=== PATIENT | female | born 1980 | race Caucasian/White ===

== ENCOUNTER 2017-03-10 08:26 | Outpatient (CLI) | payer OTHER ==
[2016-02-25 07:46] VITALS: BMI 27.1
[2017-03-10 08:55] LABS: FLU INTERNAL QC INTERNAL QC VALID; RAPID FLU A NEGATIVE (NEGATIVE); RAPID FLU B NEGATIVE (NEGATIVE)
== END 2017-03-10 08:27 | disposition home or self-care (01) ==
LOC: LAB 08:26
PROVIDERS: ATTEND Nurse Practitioner Family
DX: J02.9 Acute pharyngitis, unspecified (principal); R50.9 Fever, unspecified; R05 Cough
CPT/HCPCS: 87651; 87804; 87880

== ENCOUNTER 2017-05-16 09:45 | Outpatient (CLI) ==
[2016-02-25 07:46] VITALS: BMI 27.1
--- NOTE | 2017-05-16 10:36 | DI ---
EXAM: Three views of the lumbar spine HISTORY: Lower back pain. COMPARISON: None FINDINGS: There is no compression fracture or subluxation of the lumbosacral spine. The lumbosacral junction is intact. The facets and posterior processes are unremarkable. The soft tissues are unr emarkable. There is no lytic or blastic lesion. IMPRESSION: No acute abnormality of the lumbar spine.
== END 2017-05-16 09:46 | disposition home or self-care (01) ==
LOC: RAD 09:45
PROVIDERS: ATTEND Nurse Practitioner Family
DX: M54.5 Low back pain (principal); S39.012A Strain of muscle, fascia and tendon of lower back, initial encounter

== ENCOUNTER 2017-07-23 09:00 | Outpatient (RCR) ==
[2016-02-25 07:46] VITALS: BMI 27.1
--- NOTE | 2017-07-03 08:35 | RS.OPPTEV2 ---
Date of Note: 07/02/17 Visit #: 1 Date of Evaluation: 07/02/17 Payer Source: Workman's Comp Treatment Diagnosis: Low back pain, strain of muscle of low back History of Condition/Mechanism of Injury:: Patient reports low back pain as a result of lifting a 5 lb bucket of ice on 05/05/17 at work. States she felt a pull in her low back, but did not initially feel pain. States she went ahead and worked and tried to manage her pain with heat and cold, but she soon realized she would have to see a physician about her pain. Prior Level of Function.....Patient was independent with: ADL's, Self Care, Work /Vocation, Caregiving, Ambulation/Mobility, Community Integration/Access Functional Limitations: Reaching, Pushing, Pulling, Lifting, Sitting (prolonged) , Standing (prolonged), Bending, Community Access/Integration Current Subjective/complaints:: Patient reports pain started on the left side of the low back. She did have aching into the left LE to the knee. Since taking a muscle relaxant and an anti-inflammatory, she reports pain is much less. States she currently feels pressure in the lower back and light aching in the left thigh. She reports increased pain and the feeling of muscle guarding in her back if she picks up her grandaughter. Also reports needing to move around if she stands or sits for too long. She is currently on light duty at work until she goes back for a follow up on 07/14/17. 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 Medical History Smoking Status: Current every day smoker Hx Home Medications: diclofenac Patient's Goals: Her goal is to get relief of back pain and return to work. Pain Assessment - Pain Description Pain Location: low back and left thigh Pain Description: Tightness, Aching Current Pain Intensity: 3/10 Worst Pain Intensity: 7/10 Functional Outcome Measure Oswestry LBP: 36 - G Codes & Severity Modifier G Codes & Modifier: NA Source of G Code score: NA Observation - Observation Comments: Lumbar spine demonstrates slight rotation to the right in standing. This is not as obvious in sitting. Gait - Gait Pattern General Gait Pattern Observation: No Deviations/Normal - ROM Lumbar Flexion: Hand reach to Mid-Thighs Sidebending to Left: Reach to Mid-thigh Sidebending to Right: Reach to Mid-thigh Comments: Lumbar extension beyond neutral causes increased pain in the low back. Side bending to the right causes pulling/tightness on the left low back region. - Strength Comments: Bilateral LE strength 5/5 throughout. - Special Tests BETHANY Test: Negative Left, Negative Right SLR Test: Negative Left, Negative Right Seated Dural Stretch Test: Negative Left, Negative Right SI Joint Compression: Negative Palpation Comments:: Tenderness in the left lumbosacral area reported. She demonstrates moderate increased muscle tone along bilateral lumbar paraspinals. Reports no pain or tenderness with palpation directly over the lumbar spine with central PA 's. Sensation - Sensation Right Lower Extremity: Intact/Normal Left Lower Extremity: Intact/Normal Interventions - Exercise/Activities/Manual Therapy Exercises/Activities: Patient instructed in stretching for HEP: HS stretch, piriformis stretch, and lower trunk rotation. Manual Therapy: NA HOME EXERCISE PROGRAM: HS, Piriformis, lower trunk rotation stretch - Charges Total Direct Minutes: 45 mins Total Treatment Time: 45 mins Procedures billed for this date of service:: EVAL LOW Assessment Assessment: Patient presents to therapy with a diagnosis of strain of muscle of the lower back. She presents with subjective reports of symptoms that have improved, but she continues to experience muscle guarding and discomfort with bending, lifting, or being in one position for a long amount of time. She demonstrates moderate increased muscle tone along the lumbar spine and decreased lumbar AROM. She will benefit from modalities to decrease muscle tone and her discomfort with ROM. She will also benefit from education of back safety and proper lifting mechanics. Patient Education: Education of diagnosis, Body/Joint mechanics, Home Exercise Program, Activity Modification, Education of Plan of Care Rehab Potential: Good Short Term Goals Goal #1: Pt independent in initial stretching exercises for HEP. Goal to be met by: 07/09/17 Goal #2: Muscle tone at lumbar paraspinals decreased to minimal. Goal to be met by: 07/16/17 Goal #3: Lumbar AROM WFL's. Goal to be met by: 07/16/17 Hourly Caregiver Goals Goal #1: Pt knows HEP and to continue ex's to maintain functional level at D/C. Goal to be met by: 08/06/17 Goal #2: Score on Oswestry LBP scale improved to 10. Goal to be met by: 08/06/17 Goal #3: Pt able to perform all ADL's with no low back pain. Goal to be met by: 08/06/17 Goal #4: Pt able to return to work without limitation. Goal to be met by: 08/06/17 Plan - Treatment to be Provided Procedures: Therapeutic Exercises, Therapeutic Activity, Manual Therapy, Patient Education Modalities: Electrical Stimulation, Ultrasound/Phonophoresis, Cryotherapy, Hot Packs - Treatment Plan Frequency: 3 X week Duration: 3-4 weeks ORDER # VISITS AND/OR THROUGH DATE: 08/06/17 - Treatment Code (1) Low back pain Qualifiers: Chronicity: acute Back pain laterality: unspecified Sciatica presence: unspecified whether sciatica present Qualified Description: Acute low back pain, unspecified back pain laterality, with sciatica presence unspecified Qualifier Code(s): (M54.5) Low back pain (2) Strain of muscle, fascia and tendon of lower back, subsequent encounter Comments: S39.012D
--- NOTE | 2017-07-14 13:44 | RS.OPPTDN ---
Subjective Date of Note: 07/14/17 Visit #: 2 Date of Evaluation: 07/02/17 Payer Source: Workman's Comp Treatment Diagnosis: Low back pain, strain of muscle of low back Current Subjective/complaints:: Patient reporting tightness across the low back , particularly the L side. She says when pain is bad, it runs down her L leg. She describes her symptoms as "aggravating," not actual sharp pain. She says she works 2, 10 hour days and she stands constantly. Lucia says this is what increases her pain. Pain Assessment - Pain Description Pain Location: low back and left thigh Pain Description: Tightness, Aching Current Pain Intensity: "aggravating" - Treatment Modality: Ultrasound Parameters/Method Applied: continuous @ 1.5 w/cm2 x 10 L Lumbar paraspinals x 6 mins, 4 to the R Patient Position: Right Sidelying - Heat/Cryotherapy Treatment: Hot Pack (mid to low back in supine x20 mins) Interventions - Exercise/Activities/Manual Therapy Exercises/Activities: Patient received passive stretching of: SKTC, HS, Piriformis bilaterally, but with focus to the L. Patient began pillow squeezes and isometric hip abd x 10. Reviewed HEP. Total minutes of Exercise: 15 Manual Therapy: NA HOME EXERCISE PROGRAM: HS, Piriformis, lower trunk rotation stretch - Charges Total Direct Minutes: 25 Total Treatment Time: 45 Procedures billed for this date of service:: hp, u/s, ex Assessment: Patient appeared to balta modalities and therex well. She demo mod muscle guarding along the lower lumbar paraspinals. Mod tightness during L HS stretch. Patient Education: Education of diagnosis, Body/Joint mechanics, Home Exercise Program, Home Safety, Activity Modification, Education of Plan of Care Patient demonstrates compliance with HEP?: Yes Short Term Goals Goal #1: Pt independent in initial stretching exercises for HEP. Goal to be met by: 07/09/17 Progress towards Goal:: Progressing Goal #2: Muscle tone at lumbar paraspinals decreased to minimal. Goal to be met by: 07/16/17 Goal #3: Lumbar AROM WFL's. Goal to be met by: 07/16/17 Safety Belt Installer Goals Goal #1: Pt knows HEP and to continue ex's to maintain functional level at D/C. Goal to be met by: 08/06/17 Goal #2: Score on Oswestry LBP scale improved to 10. Goal to be met by: 08/06/17 Goal #3: Pt able to perform all ADL's with no low back pain. Goal to be met by: 08/06/17 Goal #4: Pt able to return to work without limitation. Goal to be met by: 08/06/17 Plan PLAN OF CARE EXPIRES ON:: 08/06/17 ORDER # VISITS AND/OR THROUGH DATE: 08/06/17 PLAN: Continue Plan of Care
--- NOTE | 2017-07-16 10:30 | RS.OPPTDN ---
Subjective Date of Note: 07/16/17 Visit #: 3 Date of Evaluation: 07/02/17 Payer Source: Workman's Comp Treatment Diagnosis: Low back pain, strain of muscle of low back Current Subjective/complaints:: Patient reports feeling much better the day of last treatment, but having soreness and stiffness the next moning. Reports she is working on HEP. Pain Assessment - Pain Description Pain Location: low back and left thigh Pain Description: Tightness, Aching Current Pain Intensity: "aggravating" - Treatment Modality: Ultrasound Parameters/Method Applied: [id number] at 1.5w/cm2 to the left lumbar paraspinals and into the glut region prior to EX. Patient Position: Right Sidelying - Heat/Cryotherapy Treatment: Hot Pack ([id number] to the lowback prior to US and EX. Patient in supine. ) Interventions - Exercise/Activities/Manual Therapy Exercises/Activities: Patient received passive stretching of SKTC, HS, Piriformis bilaterally, with focus on left side. Pillow squeezes and isometric hip abduction. Total minutes of Exercise: 15mins Manual Therapy: NA HOME EXERCISE PROGRAM: HS, Piriformis, lower trunk rotation stretch - Charges Total Direct Minutes: 25mins Total Treatment Time: 45mins Procedures billed for this date of service:: HP, US, EX Assessment: Patient appears to be working on HEP. Patient Education: Body/Joint mechanics, Home Exercise Program Comments: Patient education of dx, posture, and body mechanics. Patient demonstrates compliance with HEP?: Yes Short Term Goals Goal #1: Pt independent in initial stretching exercises for HEP. Goal to be met by: 07/09/17 Progress towards Goal:: Progressing Goal #2: Muscle tone at lumbar paraspinals decreased to minimal. Goal to be met by: 07/16/17 Goal #3: Lumbar AROM WFL's. Goal to be met by: 07/16/17 Correction Goals Goal #1: Pt knows HEP and to continue ex's to maintain functional level at D/C. Goal to be met by: 08/06/17 Goal #2: Score on Oswestry LBP scale improved to 10. Goal to be met by: 08/06/17 Goal #3: Pt able to perform all ADL's with no low back pain. Goal to be met by: 08/06/17 Goal #4: Pt able to return to work without limitation. Goal to be met by: 08/06/17 Plan PLAN OF CARE EXPIRES ON:: 08/06/17 ORDER # VISITS AND/OR THROUGH DATE: 08/06/17 PLAN: Continue Plan of Care
--- NOTE | 2017-07-18 10:49 | RS.OPPTDN ---
Subjective Date of Note: 07/18/17 Visit #: 4 Date of Evaluation: 07/02/17 Payer Source: Workman's Comp Treatment Diagnosis: Low back pain, strain of muscle of low back Current Subjective/complaints:: Patient reports doing a little better. States pain is slowly improving. Pain Assessment - Pain Description Pain Location: low back and left thigh Pain Description: Tightness, Aching Current Pain Intensity: 3/10 today - Treatment Modality: Ultrasound Parameters/Method Applied: [id number] @ 1.5w/cm2 to the left lowback and S-I joint region prior to EX. Patient Position: Right Sidelying - Heat/Cryotherapy Treatment: Hot Pack ([id number] to the lowback prior to US and EX. Patient in supine. ) Interventions - Exercise/Activities/Manual Therapy Exercises/Activities: Patient received passive stretching of SKTC, HS, and piriformis bilaterally, with focus on left side. Pillow squeezes and isometric hip abduction. Began isometric hip flexion. Total minutes of Exercise: 14mins Manual Therapy: NA HOME EXERCISE PROGRAM: HS, Piriformis, lower trunk rotation stretch, isometric hip flexion. - Charges Total Direct Minutes: 26mins Total Treatment Time: 46mins Procedures billed for this date of service:: HP, US, EX Assessment: Patient reporting improvement in pain and progressing with exercise. Patient Education: Body/Joint mechanics, Home Exercise Program Patient demonstrates compliance with HEP?: Yes Short Term Goals Goal #1: Pt independent in initial stretching exercises for HEP. Goal to be met by: 07/09/17 Progress towards Goal:: Met Goal #2: Muscle tone at lumbar paraspinals decreased to minimal. Goal to be met by: 07/16/17 Progress towards Goal:: Progressing Goal #3: Lumbar AROM WFL's. Goal to be met by: 07/16/17 Manager Lvn Goals Goal #1: Pt knows HEP and to continue ex's to maintain functional level at D/C. Goal to be met by: 08/06/17 Goal #2: Score on Oswestry LBP scale improved to 10. Goal to be met by: 08/06/17 Goal #3: Pt able to perform all ADL's with no low back pain. Goal to be met by: 08/06/17 Goal #4: Pt able to return to work without limitation. Goal to be met by: 08/06/17 Plan PLAN OF CARE EXPIRES ON:: 08/06/17 ORDER # VISITS AND/OR THROUGH DATE: 08/06/17 PLAN: Continue Plan of Care
--- NOTE | 2017-07-21 11:43 | RS.OPPTDN ---
Subjective Date of Note: 07/21/17 Visit #: 5 Date of Evaluation: 07/02/17 Payer Source: Workman's Comp Treatment Diagnosis: Low back pain, strain of muscle of low back Current Subjective/complaints:: Patient says pain seems to be getting better, but the day after her session, she has been having tightness to the L lower back moving to the L thigh. She says it feels like it is cramping up currently. Pain Assessment - Pain Description Pain Location: low back and left thigh Pain Description: Tightness, Aching Current Pain Intensity: 3/10 today - Treatment Modality: Ultrasound Parameters/Method Applied: continuous @ 1.5 w/cm2 and 3.3 mHz x 8 mins to the L lumbar paraspinals, 4 to the R. Ended with 5 mins pulsed @ 0.8 w/cm2 to the L lumbar region for tissue healing of recent strain. Patient Position: Right Sidelying - Heat/Cryotherapy Treatment: Hot Pack (mid to low back and SI in supine x 20 mins) Interventions - Exercise/Activities/Manual Therapy Exercises/Activities: Patient continued to recieve passive stretch of SKTC, HS, Piriformis, Fig 4, and lower rotation to the R x 4 reps. To the R side all x 2. Supine hip flexor and quad stretching. Prone lying and MIKAELA x 2 mins. Alt LE lift in prone x 5. Total minutes of Exercise: 19 Manual Therapy: NA HOME EXERCISE PROGRAM: HS, Piriformis, lower trunk rotation stretch, isometric hip flexion. - Charges Total Direct Minutes: 36 Total Treatment Time: 56 Procedures billed for this date of service:: hp, u/s, ex Assessment: Patient arrives with moderate L lower back pain extending to the L thigh (anteriorally) as she has worked Sat/Sun 10 hours each. She has been improving with pain level and flexibility in PT, but when she works her 2 days in a row, pain returns as well as muscle tightness. She has received stretching today and modalities which did improve her pain level to 0 and only slight tightness remained. She does apply less WB with stance onto the L LE, but is less painful upon leaving department. Patient Education: Education of diagnosis, Body/Joint mechanics, Home Exercise Program, Home Safety, Activity Modification, Education of Plan of Care Patient demonstrates compliance with HEP?: Yes Short Term Goals Goal #1: Pt independent in initial stretching exercises for HEP. Goal to be met by: 07/09/17 Progress towards Goal:: Met Goal #2: Muscle tone at lumbar paraspinals decreased to minimal. Goal to be met by: 07/16/17 Progress towards Goal:: Progressing Goal #3: Lumbar AROM WFL's. Goal to be met by: 07/16/17 Progress towards Goal:: Progressing Nutrition Helper Goals Goal #1: Pt knows HEP and to continue ex's to maintain functional level at D/C. Goal to be met by: 08/06/17 Progress towards goal: Progressing Goal #2: Score on Oswestry LBP scale improved to 10. Goal to be met by: 08/06/17 Goal #3: Pt able to perform all ADL's with no low back pain. Goal to be met by: 08/06/17 Goal #4: Pt able to return to work without limitation. Goal to be met by: 08/06/17 Plan PLAN OF CARE EXPIRES ON:: 08/06/17 ORDER # VISITS AND/OR THROUGH DATE: 08/06/17 PLAN: Progress Exercises Comments:: Patient continues to need assistance with stretching and instruction in further progressive exercises.
--- NOTE | 2017-07-23 09:59 | RS.OPPTDN ---
Subjective Date of Note: 07/23/17 Visit #: 6 Date of Evaluation: 07/02/17 Payer Source: Workman's Comp Treatment Diagnosis: Low back pain, strain of muscle of low back Current Subjective/complaints:: Patient reports she is sore today. States she has increased pain following long periods of standing at work over the weekends. Pain Assessment - Pain Description Pain Location: low back and left thigh Pain Description: Tightness, Aching Current Pain Intensity: 2-3/10 today - Treatment Modality: Ultrasound Parameters/Method Applied: [id number] 1.5w/cm2 to the left lower lumbar paraspinals , S-I joint, and upper gluteal region prior to EX. Patient Position: Right Sidelying - Heat/Cryotherapy Treatment: Hot Pack (Ended with HP to lowback [id number]. Patient in supine. ) Interventions - Exercise/Activities/Manual Therapy Exercises/Activities: Patient continued to recieve passive stretch of SKTC, HS, Piriformis, Fig 4, and lower rotation. Isometric hip flexion. Isometric hip adduction. Bridging. Green theraband for bilateral hip abduction. Total minutes of Exercise: 15mins Manual Therapy: NA HOME EXERCISE PROGRAM: HS, Piriformis, lower trunk rotation stretch, isometric hip flexion. Bridging. Green theraband for hip abduction. - Charges Total Direct Minutes: 25mins Total Treatment Time: 45mins Procedures billed for this date of service:: US, EX, HP Assessment: Patient able to progress with trunk strengthening/stability exercises. Patient Education: Body/Joint mechanics, Home Exercise Program Patient demonstrates compliance with HEP?: Yes Short Term Goals Goal #1: Pt independent in initial stretching exercises for HEP. Goal to be met by: 07/09/17 (100%) Progress towards Goal:: Met Goal #2: Muscle tone at lumbar paraspinals decreased to minimal. Goal to be met by: 07/16/17 (70%) Progress towards Goal:: Progressing Goal #3: Lumbar AROM WFL's. 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 Goal to be met by: 08/06/17 Progress towards goal: Progressing Goal #2: Score on Oswestry LBP scale improved to 10. Goal to be met by: 08/06/17 Goal #3: Pt able to perform all ADL's with no low back pain. Goal to be met by: 08/06/17 (50%) Progress towards goal: Progressing Goal #4: Pt able to return to work without limitation. Goal to be met by: 08/06/17 Progress towards goal: Progressing Plan PLAN OF CARE EXPIRES ON:: 08/06/17 ORDER # VISITS AND/OR THROUGH DATE: 08/06/17 PLAN: Continue Plan of Care (Continue modalities and progressive exercise to reduce pain and increase functional activity level.)
== END 2017-07-24 ==
PROVIDERS: ATTEND Nurse Practitioner Family
DX: S39.012D Strain of muscle, fascia and tendon of lower back, subsequent encounter (principal); M54.5 Low back pain

== ENCOUNTER 2017-08-12 09:00 | Outpatient (RCR) ==
[2017-05-16 09:52] VITALS: BMI 27.1
--- NOTE | 2017-07-25 10:00 | RS.OPPTDN ---
Subjective Date of Note: 07/25/17 Visit #: 7 Date of Evaluation: 07/02/17 Payer Source: Workman's Comp Treatment Diagnosis: Low back pain, strain of muscle of low back Current Subjective/complaints:: Patient reports she feels she did much better after last session. States she is working on HEP as instructed. She states she understands patient education of body mechanics and safe lifting and will try to use this at work. Pain Assessment - Pain Description Pain Location: low back and left thigh Current Pain Intensity: 1-2/10 today - Treatment Modality: Ultrasound Parameters/Method Applied: [id number] at 1.5w/cm2 to the left LB, S-I joint, and upper glut prior to EX. Patient Position: Right Sidelying - Heat/Cryotherapy Treatment: Hot Pack ([id number] to lowback following US and EX. Patient in supine. ) Interventions - Exercise/Activities/Manual Therapy Exercises/Activities: Patient continued to recieve passive stretch of SKTC, HS, Piriformis, Fig 4, and lower rotation. Isometric hip flexion. Isometric hip adduction. Bridging. Green theraband for bilateral hip abduction. MET with manually resisted hip IR and ER at 90/90 position. Also isometric hip extension on left. Patient education of body mechanics, safe lifting, and review of work duties. Total minutes of Exercise: 15mins Manual Therapy: NA HOME EXERCISE PROGRAM: HS, Piriformis, lower trunk rotation stretch, isometric hip flexion. Bridging. Green theraband for hip abduction. - Charges Total Direct Minutes: 27mins Total Treatment Time: 50mins Procedures billed for this date of service:: US, EX, HP Assessment: Patient responding well to modalites and exercise, including MET. She appears motivated to continue HEP and implement safe lifting and body mechanics as instructed. Patient Education: Body/Joint mechanics, Home Exercise Program, Home Safety, Activity Modification Patient demonstrates compliance with HEP?: Yes Short Term Goals Goal #1: Pt independent in initial stretching exercises for HEP. Goal to be met by: 07/09/17 (100%) Progress towards Goal:: Met Goal #2: Muscle tone at lumbar paraspinals decreased to minimal. Goal to be met by: 07/16/17 (70%) Progress towards Goal:: Progressing Goal #3: Lumbar AROM WFL's. 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 Goal to be met by: 08/06/17 Progress towards goal: Progressing Goal #2: Score on Oswestry LBP scale improved to 10. Goal to be met by: 08/06/17 Goal #3: Pt able to perform all ADL's with no low back pain. Goal to be met by: 08/06/17 (50%) Progress towards goal: Progressing Goal #4: Pt able to return to work without limitation. Goal to be met by: 08/06/17 Progress towards goal: Progressing Plan PLAN OF CARE EXPIRES ON:: 08/06/17 ORDER # VISITS AND/OR THROUGH DATE: 08/06/17 PLAN: Progress Exercises (Continue modalitites and progress exercise to reduce pain and increase patients functional activities at home and work.)
--- NOTE | 2017-07-30 13:22 | RS.OPPTDN ---
Subjective Date of Note: 07/30/17 Visit #: 8 Date of Evaluation: 07/02/17 Payer Source: Workman's Comp Treatment Diagnosis: Low back pain, strain of muscle of low back Current Subjective/complaints:: Patient says her last session did help a lot. 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 Pain Assessment - Pain Description Pain Location: low back and left thigh Current Pain Intensity: 0/10, sporadic ache to the L LB that intermittently runs to the L ant thigh - Treatment Modality: Ultrasound Parameters/Method Applied: continuous @ 1.6 w/cm2 x 12 mins to L lumbar paraspinals and superior gluteal region Patient Position: Right Sidelying - Heat/Cryotherapy Treatment: Hot Pack (after therex x 15 mins to the mid to low back in supine) Interventions - Exercise/Activities/Manual Therapy Exercises/Activities: Patient continued to recieve passive stretch of SKTC, HS, Piriformis, Fig 4, and lower rotation. Isometric hip flexion. Isometric hip adduction. Bridging. Green theraband for bilateral hip abduction. MET with manually resisted hip IR and ER at 90/90 position. Also isometric hip extension on left. Patient education of body mechanics, safe lifting, and review of work duties. Total minutes of Exercise: 17 Manual Therapy: NA HOME EXERCISE PROGRAM: HS, Piriformis, lower trunk rotation stretch, isometric hip flexion. Bridging. Green theraband for hip abduction. - Charges Total Direct Minutes: 29 Total Treatment Time: 44 Procedures billed for this date of service:: hp, u/s, ex Assessment: Patient admits improved pain to now only having intermittent ache which is present from the L LB to the L thigh anteriorally. She has improved lumbar flexibility enabling her to bend and reach to the floor with better ease. She continues to have the most difficulty tolerating her shifts at work that involve prolonged 10 hour standing. She consistently tries to use proper body mechanics when needed at work and home and does demo improved trunk strengthening. Patient Education: Education of diagnosis, Body/Joint mechanics, Home Exercise Program, Home Safety, Activity Modification, Education of Plan of Care Patient demonstrates compliance with HEP?: Yes Short Term Goals Goal #1: Pt independent in initial stretching exercises for HEP. Goal to be met by: 07/09/17 (100%) Progress towards Goal:: Met Goal #2: Muscle tone at lumbar paraspinals decreased to minimal. Goal to be met by: 07/16/17 (70%) Progress towards Goal:: Progressing Goal #3: Lumbar AROM WFL's. Goal to be met by: 07/16/17 (80%) Progress towards Goal:: Progressing Halfway Goals Goal #1: Pt knows HEP and to continue ex's to maintain functional level at D/C. Goal to be met by: 08/06/17 Progress towards goal: Progressing Goal #2: Score on Oswestry LBP scale improved to 10. Goal to be met by: 08/06/17 Goal #3: Pt able to perform all ADL's with no low back pain. Goal to be met by: 08/06/17 (50%) Progress towards goal: Progressing Goal #4: Pt able to return to work without limitation. Goal to be met by: 08/06/17 Progress towards goal: Progressing Plan PLAN OF CARE EXPIRES ON:: 08/06/17 ORDER # VISITS AND/OR THROUGH DATE: 08/06/17 PLAN: Progress Exercises
--- NOTE | 2017-08-01 13:44 | RS.OPPTDN ---
Subjective Date of Note: 08/01/17 Visit #: 9 Date of Evaluation: 07/02/17 Payer Source: Workman's Comp Treatment Diagnosis: Low back pain, strain of muscle of low back Current Subjective/complaints:: Patient says she continues to feel more mobile and less pain. Pain Assessment - Pain Description Pain Location: low back and left thigh Current Pain Intensity: 0/10, sporadic ache to the L LB that intermittently runs to the L ant thigh - Treatment Modality: Ultrasound Parameters/Method Applied: continuous @ 1.6 w/cm2 x 12 mins to L lumbar paraspinals and SI/superior gluteal region Patient Position: Right Sidelying - Heat/Cryotherapy Treatment: Hot Pack (low back and hips in supine after therex x 15 mins) Interventions - Exercise/Activities/Manual Therapy Exercises/Activities: Patient continued to recieve passive stretch of SKTC, HS, Piriformis, Fig 4, and lower rotation. Isometric hip flexion. Isometric hip adduction. Bridging. Isometric hip abd in hooklying x 10. Green theraband for bilateral hip abduction. Also isometric hip extension on left. Total minutes of Exercise: 16 Manual Therapy: NA HOME EXERCISE PROGRAM: HS, Piriformis, lower trunk rotation stretch, isometric hip flexion. Bridging. Green theraband for hip abduction. - Charges Total Direct Minutes: 28 Total Treatment Time: 43 Procedures billed for this date of service:: hp, u/s, ex Assessment: Patient continues to voice improvements with pain level and flexibility. She is able to provide increased resistance with isometrics demo improvements in strength. Bucky to work duties remains nearly unchanged however. Patient Education: Body/Joint mechanics, Home Exercise Program Patient demonstrates compliance with HEP?: Yes Short Term Goals Goal #1: Pt independent in initial stretching exercises for HEP. Goal to be met by: 07/09/17 (100%) Progress towards Goal:: Met Goal #2: Muscle tone at lumbar paraspinals decreased to minimal. Goal to be met by: 07/16/17 (70%) Progress towards Goal:: Progressing Goal #3: Lumbar AROM WFL's. Goal to be met by: 07/16/17 (80%) Progress towards Goal:: Progressing Halfway Goals Goal #1: Pt knows HEP and to continue ex's to maintain functional level at D/C. Goal to be met by: 08/08/17 Progress towards goal: Progressing Goal #2: Score on Oswestry LBP scale improved to 10. Goal to be met by: 08/08/17 Goal #3: Pt able to perform all ADL's with no low back pain. Goal to be met by: 08/08/17 (50%) Progress towards goal: Progressing Goal #4: Pt able to return to work without limitation. Goal to be met by: 08/08/17 Progress towards goal: Progressing Plan PLAN OF CARE EXPIRES ON:: 08/08/17 ORDER # VISITS AND/OR THROUGH DATE: 08/08/17 PLAN: Progress Exercises (LTG dates increased to the end of next week to allow completion of approved visits.)
--- NOTE | 2017-08-05 08:37 | RS.CXNS ---
Date of scheduled appointment: 08/05/17 Type: Cancel Reason for Cancel/NS: Son sick
--- NOTE | 2017-08-06 10:29 | RS.OPPTDN ---
Subjective Date of Note: 08/06/17 Visit #: 10 Date of Evaluation: 07/02/17 Payer Source: Workman's Comp Treatment Diagnosis: Low back pain, strain of muscle of low back Current Subjective/complaints:: Patient says her back pain has been much better the past few days. She says she has been dealing with child sick and another child is having surgery tomorrow. Pain Assessment - Pain Description Pain Location: low back and left thigh Current Pain Intensity: 0/10, sporadic ache to the L LB that intermittently runs to the L ant thigh - Treatment Modality: Ultrasound Parameters/Method Applied: continuous @ 1.7 w/cm2 x 12 mins to L lumbar paraspinals and L superior gluteal/SI region Patient Position: Right Sidelying - Heat/Cryotherapy Treatment: Hot Pack (15 mins to the low back and hips in supine after therex and u/s) Interventions - Exercise/Activities/Manual Therapy Exercises/Activities: Patient continued to recieve passive stretch of SKTC, HS, Piriformis, Fig 4, and lower rotation. Isometric hip flexion. Isometric hip adduction. Bridging. Isometric hip abd in hooklying 2 x 10. Green theraband for bilateral hip abduction. Also isometric hip extension on left. SLR 2x10 reps. Total minutes of Exercise: 22 Manual Therapy: NA HOME EXERCISE PROGRAM: HS, Piriformis, lower trunk rotation stretch, isometric hip flexion. Bridging. Green theraband for hip abduction. - Objective Findings Observations,measurements,etc.: Oswestry LBP Scale reveals score of 4 or 8% impairment compared to 18 or 36% at eval. - Charges Total Direct Minutes: 34 Total Treatment Time: 49 Procedures billed for this date of service:: hp, u/s, ex Assessment: Patient experiencing less back pain currently, but preparing for son to have surgery tomorrow. Lucia demonstrates significant improvement per Oswestry Scale and verbal reports. She is able now to bend over to quin and tie shoes as she has not been able to do this prior to PT. When pain is at its worst (the day after she works her shift) she will have pain that runs from the L side of her back to the knee posterior/laterally and the only way she finds relief at that point is taking Ibuprofen (which nearly comletely relieves). She is to continue with therex at home as well as she will benefit from trunk stability and correct body mechanics at work setting reducing possible injury. Patient Education: Education of diagnosis, Body/Joint mechanics, Home Exercise Program, Home Safety, Activity Modification, Education of Plan of Care Patient demonstrates compliance with HEP?: Yes Short Term Goals Goal #1: Pt independent in initial stretching exercises for HEP. Goal to be met by: 07/09/17 (100%) Progress towards Goal:: Met Goal #2: Muscle tone at lumbar paraspinals decreased to minimal. Goal to be met by: 07/16/17 (85%) Progress towards Goal:: Progressing Goal #3: Lumbar AROM WFL's. Goal to be met by: 07/16/17 (80%) Progress towards Goal:: Met Assisted Goals Goal #1: Pt knows HEP and to continue ex's to maintain functional level at D/C. Goal to be met by: 08/08/17 Progress towards goal: Progressing Goal #2: Score on Oswestry LBP scale improved to 10. Goal to be met by: 08/08/17 Progress towards goal: Met Comments: scores a 4 or 8% impairment Goal #3: Pt able to perform all ADL's with no low back pain. Goal to be met by: 08/08/17 (50%) Progress towards goal: Progressing Goal #4: Pt able to return to work without limitation. Goal to be met by: 08/08/17 Progress towards goal: Progressing Comments: Patient does work 2-10 hour shifts Plan PLAN OF CARE EXPIRES ON:: 08/08/17 ORDER # VISITS AND/OR THROUGH DATE: 08/08/17 PLAN: Progress Exercises (complete this week per order and goals)
--- NOTE | 2017-08-08 09:14 | RS.CXNS ---
Date of scheduled appointment: 08/08/17 Type: Cancel Reason for Cancel/NS: Taking care of son that just had ACL surgery yesterday
== END 2017-08-23 ==
PROVIDERS: ATTEND Nurse Practitioner Family
DX: S39.012D Strain of muscle, fascia and tendon of lower back, subsequent encounter (principal); M54.5 Low back pain

== ENCOUNTER 2019-01-06 09:39 | Emergency (ER) ==
[2019-01-06 09:46] VITALS: BP 142/88; TEMP 98.9; BMI 31.0
--- NOTE | 2019-01-06 10:28 | ED.PDOC ---
General ED Provider: Dr. TIFFANY ROMERO Chief Complaint: Behavioral Complaint Stated Complaint: anxiety,problems with a teenager son Time Seen by Physician: 11:04 Mode of Arrival: Walk-In Information Source: Patient Exam Limitations: No limitations Primary Care Provider: SRIDEVI JOYA Referred to ED by: Other Nursing and Triage Documentation Reviewed and Agree: Yes Does patient meet sepsis criteria?: No System Inflammatory Response Syndrome: Not Applicable Sepsis Protocol: For patient's 13 years and over: Temp is 96.8 and below OR 101 and greater Pulse >90 BPM Resp >20/minute Acutely Altered Mental Status Are patient's symptoms suggestive of a new infection, such as: -Pneumonia -Skin, Soft Tissue -Endocarditis -UTI -Bone, Joint Infection -Implantable Device -Acute Abdominal Infection -Wound Infection -Meningitis -Blood Stream Catheter Infection -Unknown Psychological Complaint Exam - Psychiatric Complaint/Exam Patient Complains Of: Present: Other Onset/Duration: anxiety reaction Symptoms Are: Resolved Timing: Intermittent Episodes Lasting: Hours Initial Severity: Moderate Current Severity: Mild Character: Present: Anxious Aggravating: Reports: Recent stress Associated Signs And Symptoms: Reports: Sleep disturbance Related History: Reports: Recent stressors Completed Suicide Risk Factors: None Patient Accompanied By: Family Patient In Custody Of Police: No Social Withdrawal Present: No Social Isolation Present: No Prior Suicide Attempt: No Injury From Prior Suicide Attempt: No Related Surgical History: Reports: None Patient Uncooperative For Exam: No Mood: Present: Anxious Appearance: Present: Clean Thought Process: Present: Logical Insight: Present: Good Memory: Intact Judgement: Normal Danger To Others: No Differential Diagnoses: Anxiety, Bipolar Disorder, Depression Review of Systems - Review Of Systems Constitutional: Reports: Sweats Eyes: Reports: No symptoms Ears, Nose, Mouth, Throat: Reports: Epistaxis Respiratory: Reports: No symptoms Cardiac: Reports: No symptoms GI: Reports: No symptoms : Reports: No symptoms Musculoskeletal: Reports: No symptoms Skin: Reports: No symptoms Neurological: Reports: No symptoms Endocrine: Reports: No symptoms Hematologic/Lymphatic: Reports: No symptoms All Other Systems: Reviewed and Negative Past Medical History - Past Medical History Previously Healthy: Yes Endocrine: Reports: None Cardiovascular: Reports: Hypertension Respiratory: Reports: None Hematological: Reports: Anemia Gastrointestinal: Reports: None Genitourinary: Reports: None Neuro/Psych: Reports: None Musculoskeletal: Reports: Arthritis Cancer: Reports: None Last Menstrual Period: NONE - Surgical History General Surgical History: Reports: Tubal ligation, Orthopedic - Family History Family History: Reports: Unknown - Social History Smoking Status: Current some day smoker Hx Substance Use: No Alcohol Screening: None Physical Exam - Physical Exam Appearance: Well-appearing Ill-appearing: None Pain Distress: None Eyes: FERNANDO ENT: Ears normal Neck: Supple Respiratory: Airway patent GI/: Nontender Musculoskeletal: Normal strength Skin: Warm Neurological: Sensation intact Critical Care Note - Critical Care Note Total Time (mins): 0 Course - Course Orders, Labs, Meds: Orders Category Date Time Status Lorazepam [Ativan] MEDS 01/06/19 10:33 Discontinued 1 mg PO ONCE STA Medications Discontinued Medications Generic Name Dose Route Start Last Admin Trade Name Freq PRN Reason Stop Dose Admin Lorazepam 1 mg 01/06/19 10:33 01/06/19 10:47 Ativan PO 01/06/19 10:34 1 mg ONCE STA Administration Vital Signs: Temp Pulse Resp BP Pulse Ox 01/06/19 09:40 98.9 F 85 18 142/88 H 96 Departure - Departure Time of Disposition: 10:57 Disposition: HOME SELF-CARE Discharge Problem: Anxiety Instructions: Mood Disorders (ED) Condition: Good Pt referred to PMD for follow-up: Yes (with PCP of choice) IPMP verified?: No Allergies/Adverse Reactions: Allergies Sulfa (Sulfonamide Antibiotics) Allergy (Severe, Verified 01/06/19 09:46) rash, hives Home Medications: Ambulatory Orders 1 [No Reported Medications] 02/25/16 Disposition Discussed With: Patient (One tablet of 12 mg Ativan in ED and Rx for 1mg bid #tab.)
[2019-01-06] MEDS ORDERED: ATIVAN PO STA (10:33)
== END 2019-01-06 11:30 | disposition home or self-care (01) ==
LOC: ED 09:39
DX: F41.9 Anxiety disorder, unspecified (principal); F17.210 Nicotine dependence, cigarettes, uncomplicated
CPT/HCPCS: 99282